=== PATIENT | male | born 1980 | race American Indian/Alaskan Native ===

== ENCOUNTER 2018-10-21 10:10 | Emergency (ER) | payer OTHER ==
[2018-10-21 10:42] VITALS: RESP 18; TEMP 99; O2SAT 98
[2018-10-21] MEDS ORDERED: Naproxen 550 mg Tab PO STA (11:14)
[2018-10-21] MEDS ORDERED: Naproxen 550 mg Tab PO ONE (11:26)
--- NOTE | 2018-10-21 13:16 | CT ---
Date of service: 10/21/2018 PROCEDURE: CT Pelvis without contrast HISTORY: hip injury, ? fx widened pubic symphysis COMPARISON: None available. TECHNIQUE: Contiguous axial images of the pelvis . No intravenous or oral contrast given. Coronal and sagittal reformats generated. Radiation dose: Total exam DLP = 792.51 mGy-cm. This CT exam was performed using one or more of the following dose reduction techniques: Automated exposure control, adjustment of the mA and/or kV according to patient size, and/or use of iterative reconstruction technique. FINDINGS: BLADDER: Urinary bladder is incompletely distended with slight thick-walled appearance. Muscular hypertrophy may contribute. REPRODUCTIVE ORGANS: Unremarkable. VISUALIZED BOWEL: Unremarkable. PERITONEUM: Unremarkable, as visualized. No free fluid. No free air. LYMPH NODES: Unremarkable. No enlarged lymph nodes. BONES: There is what could represent well-corticated elliptical shaped bony density adjacent to and possibly arising from the right aspect of the symphysis that may represent sequela of old trauma. No evidence of acute displaced fracture nor dislocation. The osseous structures otherwise are intact. Very tiny subcortical cystic foci of superior margins both femoral heads. VASCULATURE: No aortic atherosclerotic calcification or mural plaque present. OTHER FINDINGS: Small fat containing bilateral inguinal hernias. IMPRESSION: No evidence of acute displaced fracture nor dislocation. Questionable old posttraumatic changes right aspect of the symphysis as described
--- NOTE | 2018-10-21 13:25 | C.PDOC ---
History Of Present Illness 37-year-old male presents to the ED for evaluation of right hip pain which began yesterday. 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 Patient reports feeling a sudden onset of right hip pain that radiates down his right leg and is worse when he moves and walks. Patient reports history of a muscle tear in his right leg which occurred several years ago. Patient denies extremity numbness/weakness, abdominal pain, direct trauma to the area or falls. Time Seen by Provider: 10/21/18 10:26 Chief Complaint (Nursing): Hip Pain History Per: Patient History/Exam Limitations: no limitations Onset/Duration Of Symptoms: Hrs Current Symptoms Are (Timing): Still Present Additional History Per: Patient - Hip Description Of Injury: denies: Fell, Tripped, Struck With Object Past Medical History Reviewed: Historical Data, Nursing Documentation, Vital Signs Vital Signs: Last Vital Signs Temp 99 F 10/21/18 10:36 Pulse 98 H 10/21/18 10:36 Resp 18 10/21/18 10:36 BP 155/101 H 10/21/18 10:36 Pulse Ox 98 10/21/18 10:36 Primary Care Provider: FAMILY PROVIDER,NO - Medical History PMH: HTN Surgical History: No Surg Hx Family History: States: Unknown Family Hx - Social History Hx Alcohol Use: No Hx Substance Use: No Review Of Systems Gastrointestinal: Negative for: Abdominal Pain Musculoskeletal: Positive for: Other (right hip pain ) Neurological: Negative for: Weakness, Numbness Physical Exam - Physical Exam Appears: Non-toxic, No Acute Distress Skin: Normal Color, Warm, Dry, No Ecchymosis Head: Atraumatic, Normacephalic Eye(s): bilateral: Normal Inspection Oral Mucosa: Moist Neck: Normal ROM, Supple Chest: Symmetrical, No Deformity, No Tenderness Cardiovascular: Rhythm Regular, No Murmur Respiratory: Normal Breath Sounds, No Rales, No Rhonchi, No Wheezing Back: No Vertebral Tenderness, No Paraspinal Tenderness Extremity: No Normal ROM (limited exteral and internal rotation of right hip secondary to pain ), Tenderness (to anterior aspect of right hip ), No Calf Tenderness, Capillary Refill (less than 2 seconds ), No Deformity, No Swelling, Other (flextion and extension of right knee intacft ) Pulses: Left Dorsalis Pedis: Normal, Right Dorsalis Pedis: Normal Neurological/Psych: Oriented x3, Normal Speech, Normal Cognition ED Course And Treatment O2 Sat by Pulse Oximetry: 98 (on RA) Pulse Ox Interpretation: Normal - Other Rad hip/pelvis XR X-Ray: Viewed By Me, Read By Radiologist Interpretation: Date of service: 10/21/2018. PROCEDURE: Pelvis right hip. HISTORY: R hip pain, PAIN WITH ROTATION. COMPARISON: No prior study available for comparison. TECHNIQUE: AP view of the pelvis and AP/frogleg lateral views of the right hip performed. FINDINGS: Current study reveals what appears represent a corticated bony density adjacent and probably arising from the right medial symphysis. Rule out the old sequela of old trauma with incomplete fusion. The remaining osseous structures unremarkable. Both femoral heads are intact and appropriately located. SI joints unremarkable. IMPRESSION: Questionable old T non fused fracture deformity medial aspect of the right pubic symphysis - CT Scan/US CT pelvis Other Rad Studies (CT/US): Read By Radiologist, Radiology Report Reviewed CT/US Interpretation: Date of service: 10/21/2018. PROCEDURE: CT Pelvis without contrast. HISTORY: hip injury, ? fx widened pubic symphysis. COMPARISON: None available. TECHNIQUE: Contiguous axial images of the pelvis . No intravenous or oral contrast given. Coronal and sagittal reformats generated. Radiation dose: Total exam DLP = 792.51 mGy-cm. This CT exam was performed using one or more of the following dose reduction techniques: Automated exposure control, adjustment of the mA and/or kV according to patient size, and/or use of iterative reconstruction technique. FINDINGS: BLADDER: Urinary bladder is incompletely distended with slight thick-walled appearance. Muscular hypertrophy may contribute. REPRODUCTIVE ORGANS: Unremarkable. VISUALIZED BOWEL: Unremarkable. PERITONEUM: Unremarkable, as visualized. No free fluid. No free air. LYMPH NODES: Unremarkable. No enlarged lymph nodes. BONES: There is what could represent well-corticated elliptical shaped bony density adjacent to and possibly arising from the right aspect of the symphysis that may represent sequela of old trauma. No evidence of acute displaced fracture nor dislocation. The osseous structures otherwise are intact. Very tiny subcortical cystic foci of superior margins both femoral heads. VASCULATURE: No aortic atherosclerotic calcification or mural plaque present. OTHER FINDINGS: Small fat containing bilateral inguinal hernias. IMPRESSION: No evidence of acute displaced fracture nor dislocation. Questionable old posttraumatic changes right aspect of the symphysis as described Medical Decision Making Medical Decision Making: Progress: Naproxen PO and Tylenol PO given. Hip XR ordered and reviewed. Preliminary reading shows questionable irregularity in the pubic synphysis. CT scan ordered. CT scan shows an old healed injury, no acute fractures or dislocations. Disposition - Disposition Referrals: Jim Trivedi MD [Non-Staff] - Lotus Johnson MD [Staff Provider] - Disposition: HOME/ ROUTINE Disposition Time: 13:23 Condition: STABLE Additional Instructions: Follow up with the Orthopedist within 2-3 days. Return if worsened. Prescriptions: Cyclobenzaprine [Flexeril] 5 mg PO TID #21 tab Naproxen [Naprosyn] 500 mg PO BID #20 tab Instructions: Muscle Strain (DC) Forms: [facility] ([place]), Work Excuse - Clinical Impression Clinical Impression: Muscle strain - PA / DIGITAL FORENSIC ANALYST / Resident Statement MD/DO has reviewed & agrees with the documentation as recorded. - Scribe Statement The provider has reviewed the documentation as recorded by the Scribe (Marissa Mccray) All medical record entries made by the Scribe were at my direction and personally dictated by me. I have reviewed the chart and agree that the record accurately reflects my personal performance of the history, physical exam, medical decision making, and the department course for this patient. I have also personally directed, reviewed, and agree with the discharge instructions and disposition.
[2018-10-21 13:33] VITALS: BP 146/90; PULSE 86
--- NOTE | 2018-10-21 15:29 | RAD ---
Date of service: 10/21/2018 PROCEDURE: Pelvis right hip HISTORY: R hip pain, PAIN WITH ROTATION COMPARISON: No prior study available for comparison TECHNIQUE: AP view of the pelvis and AP/frogleg lateral views of the right hip performed FINDINGS: Current study reveals what appears represent a corticated bony density adjacent and probably arising from the right medial symphysis. Rule out the old sequela of old trauma with incomplete fusion. The remaining osseous structures unremarkable. Both femoral heads are intact and appropriately located. SI joints unremarkable. IMPRESSION: Questionable old T non fused fracture deformity medial aspect of the right pubic symphysis
== END 2018-10-21 13:56 | disposition home or self-care (01) ==
LOC: C.ER 10:10
DX: S76.011A Strain of muscle, fascia and tendon of right hip, initial encounter (principal); X58.XXXA Exposure to other specified factors, initial encounter; Y93.42 Activity, yoga